=== PATIENT | female | born 1995 | race Caucasian/White ===

== ENCOUNTER → 2018-03-14 09:17 | Outpatient (CLI) | payer OTHER, SELFPAY ==
[2018-03-14 09:27] LABS: Mucous, Urine 0 SEEN /hpf (<or=2+)
[2018-03-14 10:17] LABS: Color, Urine Yellow (Yellow); Glucose, Dipstick Normal (Normal); Ketone-Dipstick Negative (Negative); Leukocyte Esterase-Dipstick 25 /ul (Negative); Nitrite-Dipstick Negative (Negative); Occult Blood-Urine 150 /ul (Negative); Protein-Dipstick 15 mg/dl (Negative); Specific Gravity, Urine 1.015 (1.002-1.030); Urine Bilirubin Dipstick Negative (Negative); Urine Clarity Sl. Cloudy (Clear); Urine Urobilinogen Normal (Normal); Urine pH 6.5 (5.0 - 8.0)
[2018-03-14 10:30] LABS: Red Blood Cells-Urine 10-25 SEEN /hpf (0-5); Squamous Epithelial Cells - UA 0-5 SEEN /hpf (5-10); White Blood Cells 0-5 SEEN /hpf (0-5)
[2018-03-14 10:31] LABS: Bacteria 1+ /hpf (None Seen)
== END ==
PROVIDERS: Family Provider Internal Medicine; PCP Internal Medicine; Visit Provider Internal Medicine
DX: Z00.00 Encounter for general adult medical examination without abnormal findings (principal)
CPT/HCPCS: 36415; 81001; 82330; 83970